=== PATIENT | male | born 1985 | race African-American/Black ===

== ENCOUNTER 2017-07-31 23:12 | Emergency (ER) | payer MEDICAID ==
[~2017-07-31] VITALS: Ht 177.8 cm; Wt 79.4 kg
[2017-07-31 23:30] VITALS: BP 132/78
[2017-08-01] VITALS (8 sets, daily range): BP systolic 116–130; BP diastolic 70–80
[2017-08-01 01:04] LABS: APPEARANCE,URINE CLEAR; BILIRUBIN, URINE NEGATIVE (NEGATIVE); GLUCOSE, URINE (UA) NEGATIVE (NEGATIVE); KETONES,URINE NEGATIVE (NEGATIVE); LEUKOCYTE ESTERASE ,URINE NEGATIVE (NEGATIVE); NITRITE,URINE NEGATIVE (NEGATIVE); PH,URINE 6 (4.5-8.0); PROTEIN,URINE NEGATIVE (NEGATIVE); UROBILINOGEN,URINE 1 MG/DL (0.0-1.0)
[2017-08-01 01:17] LABS: COLOR,URINE YELLOW
--- NOTE | 2017-08-01 04:23 | Emergency Room Report ---
History of Present Illness General Chief Complaint: Behavioral Complaint Source: Patient Present Illness HPI Is a 32-year-old male with history HIV but on no medication. Also history of recent amphetamine use. He was here earlier for agitation/anxiety. Also voiced some vague suicidal thoughts. He was laughing and eating pizza in the ER. He then left the ER without notifying the nurse. Shortly afterward he called 911 saying that he is suicidal. Police brought him in and place him on a 5150. Patient has no particular plan. No nausea no vomiting. No suicidal thoughts here with me. No hallucination. Allergies: Coded Allergies: No Known Allergies (Unverified , 07/31/17) Patient History Past Medical History: see triage record, old chart reviewed, HIV/AIDS Past Surgical History: other Family History: none Social History: drug use Immunizations: other Reviewed Nursing Documentation: PMH: Agreed, PSxH: Agreed Nursing Documentation-PM Past Medical History: No History, Except For Review of Systems ENT: Denies: sore throat Cardiovascular: Denies: chest pain, palpitations Gastrointestinal/Abdominal: Denies: nausea, vomiting, diarrhea Musculoskeletal: Denies: back problems Skin: Denies: rash Neurological: Denies: BARRY, seizures All Other Systems: negative except mentioned in HPI Physical Exam Vital Signs Date Time Temp Pulse Resp B/P (MAP) Pulse Ox O2 Delivery O2 Flow Rate FiO2 07/31/17 23:16 97.5 78 15 132/78 99 Room Air vitals normal Sp02 EP Interpretation: reviewed, normal General Appearance: alert/responsive, no apparent distress, non-toxic Head: normocephalic, atraumatic Eyes: PERRL, EOMI ENT: oropharynx normal Neck: supple/symm/no masses Respiratory: effort normal, no rhonchi, no wheezing Cardiovascular: no murmur, gallop, rub Gastrointestinal: non-tender, no mass, non-distended, no rebound/guarding, normal bowel sounds Musculoskeletal: gait & station normal Neurologic: oriented x3, sensory intact, motor strength/tone normal Skin: no rash, normal palpation Medical Decision Making Diagnostic Impression: Primary Impression: Suicidal thoughts Additional Impression: Methamphetamine abuse ER Course Patient presents with vague suicidal thoughts. I suspect that he is one a place to sleep. Police placed in a 5150. He is currently not suicidal. We'll get psychiatric evaluation. He is medically cleared. Last Vital Signs Date Time Temp Pulse Resp B/P (MAP) Pulse Ox O2 Delivery O2 Flow Rate FiO2 07/31/17 23:16 97.5 78 15 132/78 99 Room Air Status: improved Disposition: XFER TO PSYCH HOSP/UNIT Condition: Stable Referrals: [facility],REFERR[facility] (PCP) RY MCCRACKEN M.D. Aug 01, 2017 04:23
[2017-08-01 04:34] LABS: BASOPHILS % (AUTO) 0.8 % (0.0-2.0); EOSINOPHILS % (AUTO) 3.6 % (0.0-3.0); LYMPHOCYTES % (AUTO) 44.3 % (20.0-45.0); MEAN CORPUSCULAR VOLUME 91 FL (80-99); MONOCYTES % (AUTO) 14.1 % (1.0-10.0); NEUTROPHILS % (AUTO) 37.3 % (45.0-75.0); PLATELET COUNT 285 K/UL (150-450); RED BLOOD COUNT 5.14 M/UL (4.70-6.10); RED CELL DISTRIBUTION WIDTH 11.5 % (11.6-14.8); WHITE BLOOD COUNT 4.8 K/UL (4.8-10.8)
[2017-08-01 04:49] LABS: BLOOD UREA NITROGEN 15 mg/dL (7-18); POTASSIUM 4.1 MMOL/L (3.5-5.1)
[2017-08-01 04:51] LABS: ANION GAP 6 mmol/L (5-15); CALCIUM 9.3 MG/DL (8.5-10.1); CARBON DIOXIDE 30 MMOL/L (21-32); CHLORIDE 103 MMOL/L (98-107); CREATININE 0.9 MG/DL (0.55-1.30); SODIUM 139 MMOL/L (136-145)
[2017-08-01 04:53] LABS: ALANINE AMINOTRANSFERASE 38 U/L (12-78); ALBUMIN 3.9 G/DL (3.4-5.0); ALKALINE PHOSPHATASE 50 U/L (46-116)
[2017-08-01 04:55] LABS: ASPARTATE AMINO TRANSFERASE 41 U/L (15-37); BILIRUBIN,TOTAL 0.3 MG/DL (0.2-1.0)
[2017-08-01] MEDS ORDERED: Haloperidol Decanoate 50mg Inj IM ONE (11:30)
== END 2017-08-01 17:19 | disposition home or self-care (01) ==
LOC: EMR 23:27
DX: R45.851 Suicidal ideations (principal); F15.10 Other stimulant abuse, uncomplicated
CPT/HCPCS: 36415; 80053; 80307; 80329; 81003; 85025; 96372; 99285; J1631

== ENCOUNTER → 2017-07-31 | Emergency (ER) | payer MEDICAID ==
[~2017-07-31] VITALS: Ht 188 cm; Wt 83.9 kg
[2017-07-31 15:39] VITALS: BP 118/65
--- NOTE | 2017-07-31 18:03 | Emergency Room Report ---
History of Present Illness General Chief Complaint: General Complaint Source: Patient, EMS Present Illness HPI 32 yo male patient presents to ER complaining of "feeling anxious". Patient reports hx of schizophrenia, anxiety and depression. States he is currently not being seen by mental health professional. Patient reports hx of HIV; states he is currently taking medication but does not know if CD4 levels of viral load. Patient reports recent history of using crystal meth. Patient is a poor historian; difficulty with answering questions. Patient denies fever, chest pain, SOB. Allergies: Coded Allergies: No Known Allergies (Unverified , 07/31/17) Patient History Past Medical History: see triage record Social History: Reports: drug use Reviewed Nursing Documentation: PMH: Agreed, PSxH: Agreed Nursing Documentation-PMH Past Medical History: No Stated History Review of Systems All Other Systems: negative except mentioned in HPI Physical Exam Vital Signs Date Time Temp Pulse Resp B/P (MAP) Pulse Ox O2 Delivery O2 Flow Rate FiO2 07/31/17 15:39 98.2 96 16 118/65 98 Room Air Sp02 EP Interpretation: reviewed, normal General Appearance: alert, GCS 15, non-toxic, mild distress Head: normocephalic, atraumatic Eyes: bilateral eye normal inspection ENT: hearing grossly normal, normal pharynx, no angioedema, normal voice Neck: full range of motion, supple/symm/no masses Respiratory: chest non-tender, lungs clear, normal breath sounds, speaking full sentences Cardiovascular #1: regular rate, rhythm, no edema Musculoskeletal: back normal, digits/nails normal, gait/station normal, normal range of motion, non-tender Neurologic: alert, oriented x3, responsive, motor strength/tone normal, sensory intact, speech normal Psychiatric: depressed affect, anxious - unable to sit still, rubbing arms constantly Skin: normal color, no rash, warm/dry, well hydrated Medical Decision Making PA Attestation Dr. Montoya is my supervising Physician whom patient management has been discussed with. Diagnostic Impression: Primary Impression: Anxiety ER Course Pt. presents to the ED complaining of anxiety. Ddx considered but are not limited to anxiety, depression, drug use, alcohol use. Begin psych workup. Vital signs: are WNL, pt. is afebrile ED INTERVENTIONS: None required at this time. ER COURSE: Patient sitting in chair, appears anxious. Patient admits to recent drug use. On re-evaluation, patient observed resting comfortably in chair, eating pizza without difficulty; patient is talking in a friendly manner with other people in ER. Do not believe patient is a danger to himself or others. Patient care transferred to Dr. Kendrick. Last Vital Signs Date Time Temp Pulse Resp B/P (MAP) Pulse Ox O2 Delivery O2 Flow Rate FiO2 07/31/17 15:39 98.2 96 16 118/65 98 Room Air Disposition: ELOPED Referrals: [facility],REFERRING (PCP) Bennie Araujo Jul 31, 2017 18:03
== END | disposition home or self-care (01) ==
LOC: EDBD 15:47 → EMR 16:41
DX: F41.9 Anxiety disorder, unspecified (principal)
CPT/HCPCS: 96360; 99284

== ENCOUNTER 2018-04-25 04:20 | Emergency (ER) | payer MEDICAID ==
[~2018-04-25] VITALS: Ht 177.8 cm; Wt 86.2 kg
[2018-04-25 04:25] VITALS: BP 116/69
[2018-04-25] MEDS ORDERED: NKM (04:30)
[2018-04-25 05:30] VITALS: BP 116/69
--- NOTE | 2018-04-25 05:31 | Emergency Room Report ---
History of Present Illness General Chief Complaint: Behavioral Complaint Present Illness HPI 33M with agitation, off his meds. No specific trigger, abnormality, just generally agitated. +hearing voices, not suicidal. He came in on his own. No trauma, no fever, denies pain. He was here a few months ago with similar during ED visit he improved with IM Haldol. Allergies: Coded Allergies: No Known Allergies (Unverified , 07/31/17) Nursing Documentation-PMH Hx Cardiac Problems: Yes - HIV History Of Psychiatric Problem: Yes - schizophrenia, depression, anxiety, insomnia Review of Systems Constitutional: Reports: no symptoms Eye: Reports: no symptoms ENT: Reports: no symptoms Respiratory: Reports: no symptoms Cardiovascular: Reports: no symptoms Gastrointestinal: Reports: no symptoms Genitourinary: Reports: no symptoms Musculoskeletal: Reports: no symptoms Skin: Reports: no symptoms Psychiatric: Reports: prior hx, anxiety, hallucinations Neurological: Reports: no symptoms Endocrine: Reports: no symptoms Hematologic/Lymphatic: Reports: no symptoms Allergic: Reports: no symptoms All Other Systems: negative except mentioned in HPI Physical Exam Vital Signs Date Time Temp Pulse Resp B/P (MAP) Pulse Ox O2 Delivery O2 Flow Rate FiO2 04/25/18 04:22 99.0 98 18 116/69 100 Room Air Sp02 EP Interpretation: reviewed, normal General Appearance: normal inspection, well appearing, no apparent distress, alert, GCS 15, non-toxic Head: normocephalic, atraumatic Eyes: bilateral eye normal inspection, bilateral eye PERRL, bilateral eye EOMI ENT: normal ENT inspection, hearing grossly normal, normal pharynx, no angioedema, normal voice, moist mucus membranes Neck: normal inspection, full range of motion, supple, no meningismus, no bony tend Respiratory: normal inspection, lungs clear, normal breath sounds, no rhonchi, no respiratory distress, no retraction, no accessory muscle use, no wheezing Cardiovascular #1: normal inspection, regular rate, rhythm, no edema Gastrointestinal: normal inspection, normal bowel sounds, non tender, soft, no mass, non-distended Musculoskeletal: gait/station normal, normal range of motion Neurologic: normal inspection, alert, oriented x3, responsive, motor strength/ tone normal Psychiatric: memory normal, other - responding to internal stimuli but also cooperative in answering my questions correctly Suicide Risk Assessment: Suicidal Ideation: No Had intent to initiate attempt: No Pt's plan for suicide attempt: No Has means to complete attempt: No Skin: normal inspection, normal color, no rash, warm/dry Medical Decision Making Diagnostic Impression: Primary Impression: Behavioral disorder ER Course I offered this patient the same medicine he had last time, Francisco Javier, he declined saying "no thank you" "I would rather leave." He is not holdable, not suicidal/homicidal and he can navigate his environment. OK for d/c. Pt. did not want to wait for papers and he walked out without papers. Last Vital Signs Date Time Temp Pulse Resp B/P (MAP) Pulse Ox O2 Delivery O2 Flow Rate FiO2 04/25/18 04:25 99.0 88 18 116/69 100 Room Air Status: improved Disposition: HOME, SELF-CARE Condition: Stable Patient Instructions: Schizophrenia Tomer Patel M.D. Apr 25, 2018 05:31
== END 2018-04-25 07:00 | disposition home or self-care (01) ==
LOC: EMR 06:10
DX: R45.1 Restlessness and agitation (principal); F20.9 Schizophrenia, unspecified; F32.9 Major depressive disorder, single episode, unspecified; F41.9 Anxiety disorder, unspecified; Z21 Asymptomatic human immunodeficiency virus [HIV] infection status
CPT/HCPCS: 99282